=== PATIENT | female | born 1980 | race Caucasian/White ===

== ENCOUNTER 2019-11-29 00:19 | Emergency (ER) | payer SELFPAY ==
[~2019-11-29] VITALS: Ht 157.5 cm; Wt 60.5 kg
[2019-11-29 00:24] VITALS: BP 110/66
[2019-11-29 00:56] LABS: BASOPHILS % (AUTO) 0.3 % (0.0-2.0); EOSINOPHILS # (AUTO) 0.2 K/uL (0-0.4); HEMATOCRIT 41.6 % (36-48); HEMOGLOBIN 13.6 g/dL (12.0-16.0); LYMPHOCYTES % (AUTO) 24.8 % (20.5-51.1); MEAN CORPUSCULAR HEMOGLOBIN 28 pg (27-31); MEAN CORPUSCULAR HGB CONC 33 g/dL (33-37); MEAN CORPUSCULAR VOLUME 84.9 fL (80-94); MONOCYTES # (AUTO) 0.5 K/uL (0.8-1.0); NEUTROPHILS # (AUTO) 5.5 K/uL (1.8-7.7); NEUTROPHILS % (AUTO) 66.9 % (42.2-75.2); PLATELET COUNT (AUTO) 274 K/uL (140-450); RED CELL DISTRIBUTION WIDTH 14.5 % (11.6-13.7); WHITE BLOOD COUNT (AUTO) 8.2 K/uL (4.8-10.8)
[2019-11-29 01:08] LABS: ANION GAP 10.4 (8-16); CHLORIDE 107 mmol/L (98-107); CREATININE 1.1 mg/dL (0.6-1.3); GFR ARICAN-AMERICAN 71 mL/min (>90); GLUCOSE 89 mg/dL (74-106); POTASSIUM 4.4 mmol/L (3.5-5.1); SODIUM SERUM 142 mmol/L (136-145); UREA NITROGEN, BLOOD 17 mg/dL (7-18)
[2019-11-29 01:22] LABS: ALBUMIN 3.6 g/dL (3.4-5.0); ASPARTATE AMINOTRANSFERASE 16 U/L (15-37); TOTAL BILIRUBIN 0.4 mg/dL (0.0-1.0)
[2019-11-29 01:23] LABS: ACETAMINOPHEN < 0.5 ug/ml (10-30); SALICYLATE < 2.8 mg/dL (2.8-20.0)
[2019-11-29] MEDS ORDERED: NACL 0.9% 2,000 ML IV ONE (01:35)
[2019-11-29] MEDS ORDERED: NACL 0.9% 1,000 ML IV ONE (03:05)
[2019-11-29 05:46] LABS: BARBITURATE, URINE NEGATIVE ng/ml (NEG <=200); BENZODIAZEPINE, URINE NEGATIVE ng/mL (NEG <=200); CANNABINOID, URINE NEGATIVE ng/mL (NEG <=50); COCAINE, URINE NEGATIVE ng/mL (NEG <=300); OPIATE, URINE NEGATIVE ng/mL (NEG <=2000); PHENCYCLIDINE SCREEN,URINE NEGATIVE ng/mL (NEG <=25)
[2019-11-29 10:03] VITALS: BP 113/76
== END 2019-11-29 10:00 | disposition home or self-care (01) ==
LOC: MED 00:19 → EDSEX 00:19 → MED 10:00
DX: R41.82 Altered mental status, unspecified (principal); F29 Unspecified psychosis not due to a substance or known physiological condition; F79 Unspecified intellectual disabilities; Z20.828 Contact with and (suspected) exposure to other viral communicable diseases
CPT/HCPCS: 36415; 70450; 71045; 80053; 80305; 81025; 82553; 85025; 87426; 96360; 96361; 99285; G0480; J7030; U0003